=== PATIENT | female | born 1955 | race Caucasian/White ===

== ENCOUNTER 2018-12-06 06:20 | Day surgery (SDC) | payer OTHER ==
[2018-12-06 07:19] LABS: ADD MAN DIFF? NO
[2018-12-06 07:21] LABS: BASOPHILS % 0.5 % (0.0-2.0); EOSINOPHILS # 0.1 10^3/ul (0.0-0.5); EOSINOPHILS % 1.6 % (0.0-7.0); HEMATOCRIT 41.1 % (37.0-47.0); HEMOGLOBIN 13.1 g/dl (12.0-16.0); MEAN CORPUSCULAR HEMOGLOBIN 27.5 pg (29.0-33.0); MEAN CORPUSCULAR HGB CONC 31.9 g/dl (32.0-37.0); MEAN CORPUSCULAR VOLUME 86.3 fl (82.0-101.0); MEAN PLATELET VOLUME 10.1 fl (7.4-10.4); MONOCYTE # 0.6 10^3/ul (0.3-0.9); MONOCYTES % 8.2 % (0.0-11.0); NEUTROPHIL # 5.4 10^3/ul (1.6-7.5); NEUTROPHILS % 74.7 % (39.0-77.0); PLATELET COUNT 250 10^3/UL (140-415); RED BLOOD COUNT 4.76 10^6/ul (4.20-5.40); RED CELL DISTRIBUTION WIDTH 13.8 % (11.5-14.5)
[2018-12-06 07:21] LABS: WHITE BLOOD COUNT 7.3 10^3/ul (4.8-10.8)
[2018-12-06 07:39] LABS: INR 0.89; PROTIME 12.2 Sec (11.9-14.9)
[2018-12-06 07:40] LABS: PARTIAL THROMBOPLASTIN TIME 27.4 Sec (23.0-35.0)
[2018-12-06 07:41] LABS: ALANINE AMINOTRANSFERASE 65 IU/L (13-69); ALBUMIN 4.1 g/dl (3.3-4.9); ALKALINE PHOSPHATASE 101 IU/L (42-121); ANION GAP 10 (5-13); ASPARTATE AMINO TRANSFERASE 34 IU/L (15-46); BILIRUBIN,INDIRECT 0.5 mg/dl (0-1.1); BILIRUBIN,TOTAL 0.5 mg/dl (0.2-1.3); BLOOD UREA NITROGEN 13 mg/dl (7-20); CARBON DIOXIDE 28 mmol/L (21-31); CHLORIDE 106 mmol/L (97-110); Estimated GFR > 60 mL/min (>60); GLUCOSE 114 mg/dl (70-220); POTASSIUM 3.6 mmol/L (3.5-5.1); SODIUM 144 mmol/L (135-144); TOTAL PROTEIN 7.5 g/dl (6.1-8.1)
[2018-12-06] MEDS ORDERED: CEFAZOLIN 1 GM/50 ML (PMX) 50 ML IVPB (08:00)
[2018-12-06] MEDS: SOD CHLORIDE 0.9% 1,000 ML IV (08:08)
[2018-12-06] MEDS ORDERED: PROPOFOL 20 ML (09:58)
[2018-12-06] MEDS ORDERED: LIDOCAINE 2% (SDV) 5 ML INJ (09:58)
[2018-12-06] MEDS ORDERED: MIDAZOLAM 1 MG/ML 2 ML INJ (09:58)
[2018-12-06] MEDS ORDERED: ONDANSETRON 4 MG INJ (10:06)
[2018-12-06] MEDS ORDERED: DEXAMETHASONE 4 MG/ML 5 ML INJ (10:06)
[2018-12-06] MEDS ORDERED: FAMOTIDINE 20 MG INJ (10:06)
[2018-12-06] MEDS ORDERED: CEFAZOLIN 1 GM INJ (10:06)
[2018-12-06] MEDS ORDERED: FENTAnyl 50 MCG/ML VIAL (10:07)
[2018-12-06] MEDS ORDERED: EPHEDrine 25 MG/5 ML SYG (10:18)
[2018-12-06] MEDS ORDERED: HYDROmorphONE 2 MG/ML SYG (10:21)
[2018-12-06] MEDS: ISOSULFAN BLUE 1% 5 ML INJ SC (10:24)
[2018-12-06] MEDS ORDERED: PHENYLephrine (100 MCG/ML) 10ML SYG (10:40)
[2018-12-06] MEDS ORDERED: ONDANSETRON 4 MG INJ IV ×2 (11:00→11:30)
[2018-12-06] MEDS ORDERED: MEPERIDINE 25 MG INJ IV (11:00)
[2018-12-06] MEDS ORDERED: HYDROmorphONE 1 MG/5 ML IV SYRINGE IV ×3 (11:00)
[2018-12-06] MEDS ORDERED: FENTAnyl 50 MCG/ML VIAL IV ×3 (11:00)
[2018-12-06] MEDS ORDERED: DIPHENHYDRAMINE 50 MG INJ IV (11:00)
[2018-12-06] MEDS ORDERED: PROCHLORPERAZINE 10 MG INJ IV (11:00)
[2018-12-06] MEDS ORDERED: OXYCODONE/ACETAMINOPHEN (5/325) TAB PO (11:00)
[2018-12-06] MEDS ORDERED: D5W-0.45 NACL + KCL 20 MEQ 1,000 ML IV (11:06)
[2018-12-06] MEDS ORDERED: ACETAMINOPHEN 1000MG/100ML IV 100 ML IVPB (11:30)
[2018-12-06] MEDS ORDERED: morphine 2 MG INJ IV (11:30)
[2018-12-23] MEDS ORDERED: D5W-0.45 NACL + KCL 20 MEQ 1,000 ML IV (11:29)
== END 2018-12-06 13:50 | disposition home or self-care (01) ==
LOC: SDS 06:20 → REC 13:50 → SDS 06:20 → REC 11:07
DX: C50.912 Malignant neoplasm of unspecified site of left female breast (principal); I10 Essential (primary) hypertension
CPT/HCPCS: 19301; 71045; 80053; 85025; 85610; 85730; 88307; 88331; 93005